=== PATIENT | female | born 1970 | race Caucasian/White ===

== ENCOUNTER 2017-02-02 15:41 | Emergency (ER) | payer OTHER ==
[~2017-02-02] VITALS: Ht 167.6 cm; Wt 95.3 kg
[2017-02-02] MEDS ORDERED: IV NORMAL SALINE 1,000ML 1,000 ML IV SCH (16:33)
--- NOTE | 2017-02-02 16:42 | PHYS DOC ---
Past History Past Medical History: No Pertinent History Alcohol Use: None Drug Use: None Adult General Chief Complaint Chief Complaint: BACK PAIN OR INJURY HPI HPI This 46-year-old lady presents with pain in the right lower quadrant of her abdomen as well as pain in her back and the pain goes down the anterior aspect of her right leg. The symptoms all been going on since chest facies had a little nausea vomiting has had no fever chills no diarrhea She denies dysuria frequency urgency. She is due to have a hysterectomy and a couple months. She denies vaginal discharge or vaginal bleeding She does note that she's had some swelling in her ankles yesterday Review of Systems Review of Systems Constitutional: Denies fever or chills [] Eyes: Denies change in visual acuity, redness, or eye pain [] HENT: Denies nasal congestion or sore throat [] Respiratory: Denies cough or shortness of breath [] Cardiovascular: No additional information not addressed in HPI [] GI: Had right lower quadrant abdominal pain with, vomiting, ] : Denies dysuria or hematuria [] Musculoskeletal: He does have some pain in her low back Integument: Denies rash or skin lesions [] Neurologic: Denies headache, focal weakness or sensory changes [] Endocrine: Denies polyuria or polydipsia [] Current Medications Current Medications Current Medications Medications (Trade) Dose Ordered Sig/Jamel Start Time Stop Time Status Last Admin Dose Admin Morphine Sulfate (Morphine 4mg Syringe) 4 mg PRN Q15MIN PRN 02/02/17 16:45 02/03/17 16:44 UNV Ondansetron HCl (Zofran) 4 mg 1X ONCE 02/02/17 16:45 02/02/17 16:46 UNV Sodium Chloride 1,000 ml @ 1,000 mls/hr Q1H 02/02/17 16:33 02/02/17 17:32 UNV Physical Exam Physical Exam Constitutional: Well developed, well nourished, no acute distress, non-toxic appearance. [] HENT: Normocephalic, atraumatic, bilateral external ears normal, oropharynx moist, no oral exudates, nose normal. [] Eyes: PERRLA, EOMI, conjunctiva normal, no discharge. [] Neck: Normal range of motion, no tenderness, supple, no stridor. [] Cardiovascular:Heart rate regular rhythm, no murmur [] Lungs & Thorax: Bilateral breath sounds clear to auscultation [] Abdomen: Bowel sounds normal, soft, patient does have tenderness in her right lower quadrant without rebound or guarding Skin: Warm, dry, no erythema, no rash. [] Back: No tenderness, no CVA tenderness. Straight leg raising is negative. DTRs are 2+ bilaterally motor and sensory examination are unremarkable Extremities: No tenderness, no cyanosis, no clubbing, ROM intact, no edema. [] Neurologic: Alert and oriented X 3, normal motor function, normal sensory function, no focal deficits noted. [] Psychologic: Affect normal, judgement normal, mood normal. [] Current Patient Data Vital Signs Vital Signs Date Time Temp Pulse Resp B/P (MAP) Pulse Ox O2 Delivery O2 Flow Rate FiO2 02/02/17 15:58 89 16 99 Room Air Lab Results Nursery Laboratory Tests 02/02/17 16:54: White Blood Count 8.0, Red Blood Count 4.74, Hemoglobin 14.5, Hematocrit 41.6, Mean Corpuscular Volume 88, Mean Corpuscular Hemoglobin 31, Mean Corpuscular Hemoglobin Concent 35, Red Cell Distribution Width 13.5, Platelet Count 248, Neutrophils (%) (Auto) 60, Lymphocytes (%) (Auto) 29, Monocytes (%) (Auto) 9, Eosinophils (%) (Auto) 1, Basophils (%) (Auto) 1, Neutrophils # (Auto) 4.8, Lymphocytes # (Auto) 2.4, Monocytes # (Auto) 0.7, Eosinophils # (Auto) 0.1, Basophils # (Auto) 0.1, Sodium Level 141, Potassium Level 4.0, Chloride Level 105, Carbon Dioxide Level 29, Anion Gap 7, Blood Urea Nitrogen 15, Creatinine 1.0, Estimated GFR (Cockcroft-Gault) 60.0, BUN/Creatinine Ratio 15, Glucose Level 101, Calcium Level 8.8, Total Bilirubin 0.3, Aspartate Amino Transf (AST/ SGOT) 18, Alanine Aminotransferase (ALT/SGPT) 34, Alkaline Phosphatase 77, Total Protein 7.6, Albumin 3.7, Albumin/Globulin Ratio 0.9, Lipase 86 EKG EKG [] Radiology/Procedures Radiology/Procedures [] [address] [place] [id number] IMAGING REPORT Signed PATIENT: TRISH ORTIZ ACCOUNT: [id number] : 1970 LOCATION: ER AGE: 46 SEX: F EXAM STATUS: REG ER ORD. PHYSICIAN: JUSTIN WYATT MD REASON: RLQ pain PROCEDURE: CT ABD PELV W/ IV CONTRST ONLY Exam performed: CT scan of the abdomen and pelvis with contrast Clinical Indication: Right lower quadrant pain radiating back and inferiorly Date of Service: 02/02/2017 no priors Technique: Contiguous helical acquisitions are obtained from the lung bases to the pelvis during intravenous administration of [75 cc of Omnipaque 300]. Sagittal and coronal reformatted images were obtained and reviewed. In addition Contiguous helical acquisitions of the lumbar spine are reconstructed through the CT Abdomen and pelvis. Sagittal and coronal reformatted images are obtained and reviewed. CT abdomen findings: The lung bases appear essentially clear. Visualized heart is normal. The liver, spleen ,gall bladder and pancreas appears unremarkable. Both adrenal glands and bilateral kidneys appear normal with symmetric excretion of contrast via both kidneys. There is a 10.4 mm nonobstructing calculus in the right inferior renal pole. Aorta is normal in caliber without aneurysm. The small bowel loops appear nondilated and unremarkable. There is no retroperitoneal lymphadenopathy or mass lesions. No bowel related inflammatory stranding is noted. Visualized appendix is normal. No obvious stranding is seen in the pericecal region. CT pelvis findings: The pelvic bowel loops are nondilated and unremarkable. The urinary bladder is well distended and normal . Uterus is anteverted. No adnexal masses seen. Interrogation of bone windows demonstrates no obvious bony abnormality. Sagittal and coronal reformatted images were obtained and reviewed which demonstrate no additional findings. Impression abdomen and pelvis : 1. A 10.4 mm nonobstructing calculus in the right inferior renal pole. 2. No acute intra-abdominal or pelvic process is detected. End impression CT lumbar spine findings: Normal sagittal alignment is preserved. Five nonrib-bearing vertebral bodies are identified. The vertebral body heights and intervertebral disc spaces are maintained. There is no acute compression fracture. No prevertebral soft tissue swelling or mass is detected. The aorta is normal. Impression: 1. No acute abnormality seen in the CT lumbar spine. PQRS Compliance Statement: One or more of the following individualized dose reduction techniques were utilized for this examination: 1. Automated exposure control 2. Adjustment of the mA and/or kV according to patient size 3. Use of iterative reconstruction technique Electronically signed by: Phyllis Jack MD (02/02/2017 6:12 PM) DICTATED AND SIGNED BY: PHYLLIS JACK MD DATE: 02/02/17 [id number] CC: JUSTIN WYATT MD; JOYA LANDRY MD ~ Course & Med Decision Making Course & Med Decision Making Pertinent Labs and Imaging studies reviewed. (See chart for details) Patient turned over to me pending CT abdomen pelvis and lumbar spine looking for signs of appendicitis. Patient reevaluated patient is improved with IV medications provided by Dr. Kinney. Reviewed laboratory work nurse's notes and vital signs which are unremarkable this time. Still pending a urinalysis. Urine test is still pending. Times 6:51 PM [] Urinalysis negative Urine test is negative. Impression abdominal pain of unclear etiology patient given supportive medications and asked to follow-up with her primary care doctor next 12-24 hours. Dragon Disclaimer Dragon Disclaimer This chart was dictated in whole or in part using Voice Recognition software in a busy, high-work load, and often noisy Emergency Department environment. It may contain unintended and wholly unrecognized errors or omissions. Departure Departure: Impression: Primary Impression: Abdominal pain Disposition: 01 HOME, SELF-CARE Condition: IMPROVED Referrals: JOYA LANDRY MD (PCP) Patient Instructions: Abdominal Pain Additional Instructions: Please return for any new or increasing symptoms, activity question concerns, or have any blood in urine fever greater than 102.2 or if you have any new back pain difficult urinating or questions or concerns. Scripts Ondansetron (ZOFRAN ODT) 8 Mg Tab.rapdis 4 MG PO TID for 7 Days Prov: LAMONT CLAROS MD 02/02/17 Hydrocodone Bit/Acetaminophen (HYDROCODONE-APAP 5-325 ) 1 Each Tablet 1 TAB PO PRN Q6HRS Y for PAIN for 7 Days, #10 TAB 0 Refills Prov: LAMONT CLAROS MD 02/02/17 JUSTIN WYATT MD Feb 02, 2017 16:42 LAMONT CLAROS MD Feb 02, 2017 18:53
[2017-02-02] MEDS ORDERED: IOHEXOL 300 MG/ML 75 ML VIAL. IV ONE (17:10)
[2017-02-02] MEDS ORDERED: MORPHINE SULFATE 4 MG/ML DISP.SYRIN. IV/SQ PRN (17:10)
[2017-02-02] MEDS ORDERED: ONDANSETRON PF 4 MG/2 ML VIAL. IV ONE (17:10)
[2017-02-02 17:11] LABS: BASO # 0.1 x10^3/uL (0.0-0.2); BASO % 1 % (0-3); EOS # 0.1 x10^3/uL (0.0-0.7); EOS % 1 % (0-3); HEMATOCRIT 41.6 % (36.0-47.0); HEMOGLOBIN 14.5 g/dL (12.0-15.5); LYMPH # 2.4 x10^3/uL (1.0-4.8); LYMPH % 29 % (24-48); MEAN CORPUSCULAR HEMOGLOBIN 31 pg (25-35); MEAN CORPUSCULAR HGB CONC 35 g/dL (31-37); MEAN CORPUSCULAR VOLUME 88 fL (79-100); MONO # 0.7 x10^3/uL (0.0-1.1); MONO % 9 % (0-9); NEUT # 4.8 x10^3uL (1.8-7.7); NEUT % 60 % (31-73); PLATELET COUNT 248 x10^3/uL (140-400); RED BLOOD COUNT 4.74 x10^6/uL (3.50-5.40); RED CELL DISTRIBUTION WIDTH 13.5 % (11.5-14.5)
[2017-02-02 17:22] LABS: ALBUMIN 3.7 g/dL (3.4-5.0); ALBUMIN/GLOBULIN RATIO 0.9 (1.0-1.7); CALCIUM 8.8 mg/dL (8.5-10.1); TOTAL BILIRUBIN 0.3 mg/dL (0.2-1.0); TOTAL PROTEIN 7.6 g/dL (6.4-8.2)
--- NOTE | 2017-02-02 18:15 | RAD ---
Exam performed: CT scan of the abdomen and pelvis with contrast Clinical Indication: Right lower quadrant pain radiating back and inferiorly Date of Service: 02/02/2017 no priors Technique: Contiguous helical acquisitions are obtained from the lung bases to the pelvis during intravenous administration of [75 cc of Omnipaque 300]. Sagittal and coronal reformatted images were obtained and reviewed. In addition Contiguous helical acquisitions of the lumbar spine are reconstructed through the CT Abdomen and pelvis. Sagittal and coronal reformatted images are obtained and reviewed. CT abdomen findings: The lung bases appear essentially clear. Visualized heart is normal. The liver, spleen ,gall bladder and pancreas appears unremarkable. Both adrenal glands and bilateral kidneys appear normal with symmetric excretion of contrast via both kidneys. There is a 10.4 mm nonobstructing calculus in the right inferior renal pole. Aorta is normal in caliber without aneurysm. The small bowel loops appear nondilated and unremarkable. There is no retroperitoneal lymphadenopathy or mass lesions. No bowel related inflammatory stranding is noted. Visualized appendix is normal. No obvious stranding is seen in the pericecal region. CT pelvis findings: The pelvic bowel loops are nondilated and unremarkable. The urinary bladder is well distended and normal . Uterus is anteverted. No adnexal masses seen. Interrogation of bone windows demonstrates no obvious bony abnormality. Sagittal and coronal reformatted images were obtained and reviewed which demonstrate no additional findings. Impression abdomen and pelvis : 1. A 10.4 mm nonobstructing calculus in the right inferior renal pole. 2. No acute intra-abdominal or pelvic process is detected. End impression CT lumbar spine findings: Normal sagittal alignment is preserved. Five nonrib-bearing vertebral bodies are identified. The vertebral body heights and intervertebral disc spaces are maintained. There is no acute compression fracture. No prevertebral soft tissue swelling or mass is detected. The aorta is normal. Impression: 1. No acute abnormality seen in the CT lumbar spine. PQRS Compliance Statement: One or more of the following individualized dose reduction techniques were utilized for this examination: 1. Automated exposure control 2. Adjustment of the mA and/or kV according to patient size 3. Use of iterative reconstruction technique Electronically signed by: Phyllis Jack MD (02/02/2017 6:12 PM)
[2017-02-02 19:50] VITALS: BP 131/89
[2017-02-02 19:52] LABS: BILIRUBIN,URINE NEG (NEG); CLARITY,URINE CLEAR; COLOR,URINE YELLOW; GLUCOSE,URINE NEG (NEG); NITRITE,URINE NEG (NEG); UROBILINOGEN,URINE 0.2 mg/dL (0.2 mg/dL)
[2017-02-02] MEDS ORDERED: ONDA8TAB12 PO (19:52)
[2017-02-02] MEDS ORDERED: HYDR-2758 PO (19:52)
[2017-02-02 19:53] LABS: BACTERIA,URINE 0 /HPF (0-FEW); SQUAMOUS EPITHELIAL CELL,UR FEW /LPF; WBC,URINE OCC /HPF (0-4)
== END 2017-02-02 20:00 | disposition home or self-care (01) ==
LOC: ER 15:41
DX: R10.31 Right lower quadrant pain (principal); R11.2 Nausea with vomiting, unspecified
CPT/HCPCS: 36415; 74177; 80053; 81001; 81025; 83690; 85027; 96361; 96374; 96375; 99285; J2270; J2405; Q9967; J7030

== ENCOUNTER 2018-04-15 07:37 | Emergency (ER) | payer OTHER ==
[~2018-04-15] VITALS: Ht 167.6 cm; Wt 95.3 kg
[~2018-04-15 07:37] MED LIST: HYDR-2758 PO; ONDA8TAB12 PO
[2018-04-15] MEDS ORDERED: IV NORMAL SALINE 1,000ML 1,000 ML IV SCH (07:57)
[2018-04-15] MEDS ORDERED: IPRATRPIUM/ALBUTEROL 0.5/2.5MG 3 ML NEBU. NEB ONE ×2 (08:00→09:30)
--- NOTE | 2018-04-15 08:03 | PHYS DOC ---
Past History Past Medical History: Asthma Past Surgical History: Hysterectomy Alcohol Use: Occasionally Drug Use: None Adult General Chief Complaint Chief Complaint: COUGH HPI HPI Patient is a 47 year old female who presents with complaining of sore throat, cough and chest pain. Patient states that she developed a sore throat with a fever of 102 approximately several days ago. Patient also progressively developed a nonproductive cough and states that she has upper chest pain with coughing. Cough is nonproductive. Patient also states that she had asthma as a child but is not a smoker. Patient just finished driving her daughter to and from school when she is in [place]. Patient comes in today complaining of an inability to sleep last night secondary to cough, sore throat, general malaise and low-grade fever. Patient denies any calf or leg pain or swelling. Review of Systems Review of Systems Constitutional: Denies fever or chills [] Eyes: Denies change in visual acuity, redness, or eye pain [] HENT: Denies nasal congestion or sore throat [] Respiratory: Positive for cough negative for shortness of breath [] Cardiovascular: No additional information not addressed in HPI chest pain associated with coughing only GI: Denies abdominal pain, nausea, vomiting, bloody stools or diarrhea [] : Denies dysuria or hematuria [] Musculoskeletal: Denies back pain or joint pain [] Integument: Denies rash or skin lesions [] Neurologic: Denies headache, focal weakness or sensory changes [] Endocrine: Denies polyuria or polydipsia [] All other systems were reviewed and found to be within normal limits, except as documented in this note. Allergies Allergies Allergies Coded Allergies Type Severity Reaction Last Updated Verified No Known Drug Allergies 02/02/17 No Physical Exam Physical Exam Constitutional: Well developed, well nourished, no acute distress, non-toxic appearance. [] HENT: Normocephalic, atraumatic, bilateral external ears normal, oropharynx moist, no oral exudates, nose normal. Mild erythema to the hypopharynx without exudate or ulceration Eyes: PERRLA, EOMI, conjunctiva normal, no discharge. [] Neck: Normal range of motion, no tenderness, supple, no stridor. [] Cardiovascular:Heart rate regular rhythm, no murmur [] Lungs & Thorax: Bilateral breath sounds clear to auscultation [] Abdomen: Bowel sounds normal, soft, no tenderness, no masses, no pulsatile masses. [] Skin: Warm, dry, no erythema, no rash. [] Back: No tenderness, no CVA tenderness. [] Extremities: No tenderness, no cyanosis, no clubbing, ROM intact, no edema. [] Neurologic: Alert and oriented X 3, normal motor function, normal sensory function, no focal deficits noted. [] Psychologic: Affect normal, judgement normal, mood normal. [] Current Patient Data Vital Signs Vital Signs Date Time Temp Pulse Resp B/P (MAP) Pulse Ox O2 Delivery O2 Flow Rate FiO2 04/15/18 07:37 Room Air 04/15/18 07:37 97.7 88 20 95 EKG EKG NSR @98[] Radiology/Procedures Radiology/Procedures [] Course & Med Decision Making Course & Med Decision Making Pertinent Labs and Imaging studies reviewed. (See chart for details) Patient reassessed and states that she feels, after the breathing treatment, that she can feel like she can breathe easier and deeper. Patient is coughing intermittently during her stay here, nonproductive but looks like she is in less distress. Given this improvement with a single treatment I will add Solu- Medrol and give her another treatment patient is being hydrated. Dragon Disclaimer Dragon Disclaimer This electronic medical record was generated, in whole or in part, using a voice recognition dictation system. Departure Departure: Impression: Primary Impression: Asthmatic bronchitis Disposition: HOME, SELF-CARE Condition: STABLE Referrals: JOYA LANDRY MD (PCP) Patient Instructions: Acute Bronchitis, [id number], Asthma, Acute Bronchospasm Scripts Prednisone (PREDNISONE) 50 Mg Tablet 1 TAB PO DAILY, #3 TAB Prov: JUAN MANUEL AARON MD 04/15/18 Albuterol Sulfate (PROAIR HFA INHALER) 8.5 Gm Hfa.aer.ad 2 PUFF INH PRN Q6HRS PRN for SHORTNESS OF BREATH, #1 INHALER 1 Refill Prov: JUAN MANUEL AARON MD 04/15/18 JUAN MANUEL AARON MD Apr 15, 2018 08:03
[2018-04-15 08:26] LABS: BASO # 0.1 x10^3/uL (0.0-0.2); BASO % 2 % (0-3); EOS # 0.4 x10^3/uL (0.0-0.7); EOS % 4 % (0-3); HEMATOCRIT 40.9 % (36.0-47.0); HEMOGLOBIN 14.4 g/dL (12.0-15.5); LYMPH # 2.2 x10^3/uL (1.0-4.8); LYMPH % 23 % (24-48); MEAN CORPUSCULAR HEMOGLOBIN 31 pg (25-35); MEAN CORPUSCULAR HGB CONC 35 g/dL (31-37); MEAN CORPUSCULAR VOLUME 87 fL (79-100); MONO # 0.6 x10^3/uL (0.0-1.1); MONO % 6 % (0-9); NEUT % 64 % (31-73); PLATELET COUNT 256 x10^3/uL (140-400); RED BLOOD COUNT 4.69 x10^6/uL (3.50-5.40); RED CELL DISTRIBUTION WIDTH 12.8 % (11.5-14.5); WHITE BLOOD COUNT 9.3 x10^3/uL (4.0-11.0)
[2018-04-15] MEDS ORDERED: KETOROLAC 30 MG/ML VIAL. IV ONE (08:30)
--- NOTE | 2018-04-15 08:35 | RAD ---
PROCEDURE: CHEST PA LATERAL CLINICAL INDICATION: Cough x 3 days, pt shielded COMPARISON: None FINDINGS: No pneumothorax identified. Cardiac and mediastinal contours unremarkable. No pulmonary consolidation or acute airspace disease. No acute osseous abnormalities identified. IMPRESSION: No pulmonary consolidation or acute airspace disease. Electronically signed by: Wolf Hamilton DO (04/15/2018 8:32 AM) [facility]
[2018-04-15 08:37] LABS: CALCIUM 8.6 mg/dL (8.5-10.1); CREATININE 0.9 mg/dL (0.6-1.0); GFR 67.4; POTASSIUM 3.9 mmol/L (3.5-5.1)
--- NOTE | 2018-04-15 08:43 | EKG ---
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
[2018-04-15 08:51] VITALS: BP 132/82
[2018-04-15] MEDS ORDERED: methylPREDNISolone SOD SUCC PF 125 MG/2 ML VIAL. ONE (09:23)
[2018-04-15] MEDS ORDERED: IV NORMAL SALINE 1,000ML 1,000 ML IV ONE (09:30)
[2018-04-15] MEDS ORDERED: methylPREDNISolone SOD SUCC PF 125 MG/2 ML VIAL. IV ONE (09:30)
[2018-04-15 09:31] LABS: BACTERIA,URINE FEW /HPF (0-FEW); BILIRUBIN,URINE NEG (NEG); CLARITY,URINE HAZY; COLOR,URINE YELLOW; GLUCOSE,URINE NEG (NEG); NITRITE,URINE NEG (NEG); RBC,URINE OCC /HPF (0-2); SQUAMOUS EPITHELIAL CELL,UR MOD /LPF; UROBILINOGEN,URINE 0.2 mg/dL (0.2 mg/dL); WBC,URINE OCC /HPF (0-4)
[2018-04-15] MEDS ORDERED: ALBU8.5H8 INH (09:38)
[2018-04-15] MEDS ORDERED: PRED50TA PO (09:38)
== END 2018-04-15 10:00 | disposition home or self-care (01) ==
LOC: ER 07:37
DX: J45.909 Unspecified asthma, uncomplicated (principal)
CPT/HCPCS: 36415; 71046; 80048; 81001; 84484; 85025; 87070; 87880; 93005; 94640; 96374; 96375; 99285; J1885; J2930; J7620; 96361; J7030

== ENCOUNTER 2020-12-27 16:12 | Emergency (ER) | payer OTHER ==
[~2020-12-27] VITALS: Ht 167.6 cm; Wt 78.0 kg
[~2020-12-27 16:12] MED LIST changes: +ALBU2.5V8 INH; +HYDR-2155 PO; -HYDR-2758 PO; +PRED50TA PO
[2020-12-27 17:10] VITALS: BP 147/88
[2020-12-27 17:55] LABS: BACTERIA,URINE 0 /HPF (0-FEW); BILIRUBIN,URINE NEG (NEG); CLARITY,URINE CLEAR; COLOR,URINE COLORLESS; GLUCOSE,URINE NEG (NEG); NITRITE,URINE NEG (NEG); SQUAMOUS EPITHELIAL CELL,UR OCC /LPF; UROBILINOGEN,URINE 0.2 mg/dL (0.2 mg/dL); WBC,URINE 0 /HPF (0-4)
--- NOTE | 2020-12-27 18:37 | RAD ---
Exam: CT of abdomen and pelvis without contrast INDICATION: Left flank pain TECHNIQUE: Sequential axial images through the abdomen and pelvis obtained without IV contrast. Sagit randy and coronal reformatted images were reconstructed from the axial data and reviewed. Exposure: One or more of the following in the visualized dose reduction techniques were utilized for this examination: 1. Automated exposure control 2. Adjustment of the MA and/or KV according to patient size 3. Use of iterative of reconstructive technique Comparisons: None FINDINGS: Heart size is normal. No pericardial effusion. Visualized lung bases are clear. No pleural effusion. Diffuse hepatic steatosis. Spleen, pancreas, gallbladder and adrenals are unremarkable. No perinephric inflammation or hydronephrosis. Nonobstructing 5 mm calculus at the lower pole of the right kidney. No ureteral calculi are identified. Bladder is partially distended and appears thin-walled. Uterus is absent. No flow cystic lesions note d at the left adnexa measuring up to 6.9 x 4.1 cm. Few scattered diverticula noted in the sigmoid colon. Appendix is normal. No free intra-abdominal air or fluid. No obstruction. Abdominal aorta has a normal course and caliber. No enlarged intra-abdominal lymph nodes are identified. No suspicious osseous lesions or acute fractures. IMPRESSION: 1. Cystic lesion at the left adnexa measuring 6.9 x 4.1 cm incompletely characterized on CT, favored represent large cyst within the left ovary. This would be better evaluated on ultrasound. 2. Mild diverticulosis without evidence of acute diverticulitis. 3. Nonobstructing right renal calculus. No ureteral calculi or evidence for obstructive uropathy. Electronically signed by: Lisa Deras MD (12/27/2020 6:34 PM) [facility]
--- NOTE | 2020-12-27 18:54 | PHYS DOC ---
Past History Past Medical History: Asthma Past Surgical History: Hysterectomy Alcohol Use: Occasionally Drug Use: None Adult General Chief Complaint Chief Complaint: MULTIPLE COMPLAINTS [facility] Patient is a female with a history of partial hysterectomy presenting today complaining of 3 out of 10 sharp left flank pain intermittently since this afternoon. Patient denies anything specifically exacerbating the pain but states Tylenol r relieved some of the pain, she states the pain radiates to the left lower quadrant. Denies any nausea, vomiting, denies any history of kidney stones. Denies any hematuria. Reports slight dysuria. Review of Systems Review of Systems Constitutional: Denies fever or chills [] Eyes: Denies change in visual acuity, redness, or eye pain [] HENT: Denies nasal congestion or sore throat [] Respiratory: Denies cough or shortness of breath [] Cardiovascular: No additional information not addressed in [facility] [] GI: Reports left flank pain radiating to the left lower quadrant abdominal pain, denies nausea, vomiting, bloody stools or diarrhea [] : Denies dysuria or hematuria [] Musculoskeletal: Denies back pain or joint pain [] Integument: Denies rash or skin lesions [] Neurologic: Denies headache, focal weakness or sensory changes [] All other systems were reviewed and found to be within normal limits, except as documented in this note. Allergies Allergies Allergies Coded Allergies Type Severity Reaction Last Updated Verified No Known Drug Allergies 02/02/17 No Physical Exam Physical Exam Constitutional: Well developed, well nourished, no acute distress, non-toxic appearance. [] HENT: Normocephalic, atraumatic, bilateral external ears normal, oropharynx moist, no oral exudates, nose normal. [] Eyes: PERRLA, EOMI, conjunctiva normal, no discharge. [] Neck: Normal range of motion, no tenderness, supple, no stridor. [] Cardiovascular:Heart rate regular rhythm, no murmur [] Lungs & Thorax: Bilateral breath sounds clear to auscultation [] Abdomen: Bowel sounds normal, soft, no tenderness, no masses, no pulsatile masses. [] Skin: Warm, dry, no erythema, no rash. [] Back: No tenderness, no CVA tenderness. [] Extremities: No tenderness, no cyanosis, no clubbing, ROM intact, no edema. [] Neurologic: Alert and oriented X 3, normal motor function, normal sensory function, no focal deficits noted. [] Psychologic: Affect normal, judgement normal, mood normal. [] Current Patient Data Vital Signs Vital Signs Date Time Temp Pulse Resp B/P (MAP) Pulse Ox O2 Delivery O2 Flow Rate FiO2 12/27/20 17:10 97.7 86 20 147/88 (107) 97 Room Air Lab Results Laboratory Tests Test 12/27/20 17:15 Urine Collection Type Unknown Urine Color Colorless Urine Clarity Clear Urine pH 6.5 Urine Specific Anderson >=1.030 Urine Protein Neg (NEG-TRACE) Urine Glucose (UA) Neg mg/dL (NEG) Urine Ketones (Stick) Neg mg/dL (NEG) Urine Blood Small (NEG) Urine Nitrite Neg (NEG) Urine Bilirubin Neg (NEG) Urine Urobilinogen Dipstick 0.2 mg/dL (0.2 mg/dL) Urine Leukocyte Esterase Neg (NEG) Urine RBC 3-5 /HPF (0-2) Urine WBC 0 /HPF (0-4) Urine Squamous Epithelial Cells Occ /LPF Urine Bacteria 0 /HPF (0-FEW) EKG EKG [] Radiology/Procedures Radiology/Procedures []PROCEDURE: CT ABDOMEN PELVIS WO CONTRAST Exam: CT of abdomen and pelvis without contrast INDICATION: Left flank pain TECHNIQUE: Sequential axial images through the abdomen and pelvis obtained without IV contrast. Sagittal and coronal reformatted images were reconstructed from the axial data and reviewed. Exposure: One or more of the following in the visualized dose reduction techniques were utilized for this examination: 1. Automated exposure control 2. Adjustment of the MA and/or KV according to patient size 3. Use of iterative of reconstructive technique Comparisons: None FINDINGS: Heart size is normal. No pericardial effusion. Visualized lung bases are clear. No pleural effusion. Diffuse hepatic steatosis. Spleen, pancreas, gallbladder and adrenals are unremarkable. No perinephric inflammation or hydronephrosis. Nonobstructing 5 mm calculus at the lower pole of the right kidney. No ureteral calculi are identified. Bladder is partially distended and appears thin-walled. Uterus is absent. No flow cystic lesions noted at the left adnexa measuring up to 6.9 x 4.1 cm. Few scattered diverticula noted in the sigmoid colon. Appendix is normal. No free intra-abdominal air or fluid. No obstruction. Abdominal aorta has a normal course and caliber. No enlarged intra-abdominal lymph nodes are identified. No suspicious osseous lesions or acute fractures. IMPRESSION: 1. Cystic lesion at the left adnexa measuring 6.9 x 4.1 cm incompletely characterized on CT, favored represent large cyst within the left ovary. This would be better evaluated on ultrasound. 2. Mild diverticulosis without evidence of acute diverticulitis. 3. Nonobstructing right renal calculus. No ureteral calculi or evidence for obstructive uropathy. Electronically signed by: Lisa Gordon MD (12/27/2020 6:34 PM) [facility] DICTATED AND SIGNED BY: LISA GORDON MD DATE: 12/27/201828 CC: LUBNA NÚÑEZ; CHING AGUERO [employer] ~MTH0 0 Heart Score C/O Chest Pain: N/A Risk Factors: Risk Factors: DM, Current or recent (<one month) smoker, HTN, HLP, family history of CAD, obesity. Risk Scores: Risk Factors: DM, Current or recent (<one month) smoker, HTN, HLP, family history of CAD, obesity. Course & Med Decision Making Course & Med Decision Making Pertinent Labs and Imaging studies reviewed. (See chart for details) [This is a 50-year-old female patient presented to the ED today with left flank pain radiating to the left lower quadrant that began today. Urine negative for UTI, noted for small amounts of blood CT of the abdomen and pelvic was noted for a large left ovarian cyst, diverticulosis with no diverticulitis other none obstructing right renal calculus. I spoke to patient, emphasized the importance of following up with an IRRIGATIONIST for further work-up on the left ovarian cyst. Discharge to home. Dragon Disclaimer Dragon Disclaimer This electronic medical record was generated, in whole or in part, using a voice recognition dictation system. Departure Departure: Impression: Primary Impression: Diverticulosis Additional Impressions: Left ovarian cyst Kidney stone on right side Disposition: HOME / SELF CARE / HOMELESS Condition: STABLE Referrals: LUBNA NÚÑEZ (PCP) Follow-up with your IRRIGATIONIST and primary care doctor soon as possible Patient Instructions: Diverticulosis, Kidney Stones, [id number], Ovarian Cyst Additional Instructions: You were seen in the emergency room, you were noted to have a left ovarian cyst. This needs to be followed up with your IRRIGATIONIST as soon as possible. You also have nonobstructing right kidney stone, this stone is in your kidneys and typi berenice does not cause issues unless it starts moving. You also have diverticulosis which is a outpouching on your colon, this is not an issue unless it gets infected. You can take Tylenol or Motrin for pain. Follow-up with primary care doctor and IRRIGATIONIST Problem Qualifiers CHING AGUERO APRN December 27, 2020 18:54
== END 2020-12-27 19:05 | disposition home or self-care (01) ==
LOC: ER 16:12
DX: K57.90 Diverticulosis of intestine, part unspecified, without perforation or abscess without bleeding (principal); N83.202 Unspecified ovarian cyst, left side; N20.0 Calculus of kidney; J45.909 Unspecified asthma, uncomplicated; Z90.710 Acquired absence of both cervix and uterus
CPT/HCPCS: 74176; 81001; 99284